=== PATIENT | female | born 1970 | race Two or more races ===

== ENCOUNTER 2018-07-16 13:45 | Emergency (ER) | payer MEDICAID, OTHER ==
[~2018-07-16] VITALS: Ht 162.6 cm; Wt 103.0 kg
[2018-07-16 14:46] LABS: Basophils # (auto) 0 uL; Basophils % (auto) 0.5 % (0.0-2.0); Eosinophils # (auto) 0.2 uL; Eosinophils % (auto) 2.9 % (0.0-7.0); Hematocrit 40.1 % (36.0-46.0); Hemoglobin 13.2 g/dL (12.2-16.2); Lymphocytes # (auto) 1.5 uL; Lymphocytes % (auto) 18.1 % (10.0-50.0); Mean Corpuscular Hemoglobin 29.7 pg (28.0-32.0); Mean Corpuscular Volume 89.9 fL (80.0-100.0); Monocytes # (auto) 0.3 uL; Monocytes % (auto) 3.4 % (0.0-12.0); Neutrophils # (auto) 6.2 uL; Neutrophils % (auto) 75.1 % (37.0-80.0); Platelet Count (auto) 328 10^3/uL (140-450); Red Blood Cells 4.46 10^6/uL (4.0-5.20); Red Cell Distribution Width 15.2 % (11.8-14.3); White Blood Cell 8.2 10^3/uL (4.4-10.8)
[2018-07-16 14:55] LABS: Alanine Aminotransferase 34 U/L (13-56); Anion Gap 5 (5-15); Aspartate Aminotransferase 28 U/L (15-37); Blood Urea Nitrogen 20 mg/dL (7-18); Calcium 8.9 mg/dL (8.5-10.1); Carbon Dioxide 28 mmol/L (21-32); Chloride 104 mmol/L (98-107); Glucose 101 mg/dL (74-106); Magnesium 2.6 mg/dL (1.6-2.6); Sodium 137 mmol/L (136-145)
[2018-07-16 14:59] LABS: Alkaline Phosphatase 84 U/L (45-117); BUN/Creatinine Ratio 16.9; Bilirubin, Total 0.5 mg/dL (0.2-1.0); GFR African American 62 mL/min; GFR Non-African American 52 mL/min; Total Protein 7.9 g/dL (6.4-8.2)
[2018-07-16] MEDS ORDERED: cloNIDine HCL 0.1 MG TAB PO ONE (15:00)
[2018-07-16 15:59] LABS: Urine Bacteria NONE SEEN /hpf (None Seen); Urine Blood Negative /uL (Negative); Urine Mucus FEW (None Seen); Urine Specific Gravity 1.025 (1.001-1.035); Urine WBC 3 /hpf (0 - 5)
[2018-07-16 16:54] VITALS: BP 129/71
== END 2018-07-16 17:08 | disposition home or self-care (01) ==
LOC: ER 13:50
DX: I16.0 Hypertensive urgency (principal); I10 Essential (primary) hypertension; E07.9 Disorder of thyroid, unspecified; F15.90 Other stimulant use, unspecified, uncomplicated; Z90.710 Acquired absence of both cervix and uterus
CPT/HCPCS: 36415; 71045; 80053; 81001; 83735; 84443; 84484; 85025; 93005

== ENCOUNTER 2022-06-15 11:30 | Emergency (ER) | payer MEDICAID ==
[~2022-06-15] VITALS: Ht 162.6 cm; Wt 114.9 kg
[2022-06-15 12:14] VITALS: BP 167/120
== END 2022-06-15 16:56 | disposition left against medical advice (07) ==
LOC: ER 11:30
DX: E03.9 Hypothyroidism, unspecified (principal); Z76.0 Encounter for issue of repeat prescription; Z53.21 Procedure and treatment not carried out due to patient leaving prior to being seen by health care provider